=== PATIENT | female | born 1990 | race African-American/Black ===

== ENCOUNTER → 2017-05-30 | Outpatient (REF) | payer OTHER ==
[2017-06-01 11:04] LABS: HEPATITIS B SURFACE ANTIBODY POSITIVE (POSITIVE)
== END ==
LOC: M LAB REF 18:21
PROVIDERS: ATTEND Nurse Practitioner Family
DX: Z00.00 Encounter for general adult medical examination without abnormal findings (principal)

== ENCOUNTER → 2017-11-01 | Outpatient (REF) | LOC: M LAB 10:16 | PROVIDERS: ATTEND Nurse Practitioner Adult Health | DX: Z02.1 Encounter for pre-employment examination (principal) ==

== ENCOUNTER → 2018-05-04 | Outpatient (CLI) | payer OTHER | LOC: M RAD 10:40 | DX: N97.9 Female infertility, unspecified (principal) | CPT/HCPCS: 76830 ==

== ENCOUNTER 2018-07-24 03:39 | Emergency (ER) | payer OTHER ==
[2018-07-24] MEDS ORDERED: MORPHINE 4 MG/ML 1ML VIAL/SYRINGE (J2270) IV (04:15)
[2018-07-24 04:17] LABS: BASO % 0.4 % (0.0-1.0); EOS % 0.5 % (0.0-3.0); HEMATOCRIT 39.9 % (36.0-47.0); HEMOGLOBIN 13.1 g/dl (12.0-15.5); IMMATURE GRANULOCYTE % 0.4 % (0-3.0); LYMPH # 2.1 10^3/uL (1.5-4.5); LYMPH % 25.1 % (24.0-44.0); MEAN CORPUSCULAR HEMOGLOBIN 27.8 pg (27.0-33.0); MEAN CORPUSCULAR HGB CONC 32.8 g/dl (32.0-36.5); MEAN CORPUSCULAR VOLUME 84.5 fl (80.0-96.0); MONO # 1.1 10^3/uL (0.0-0.8); NEUTROPHILS # 5.1 10^3/uL (1.8-7.7); NEUTROPHILS % 60.6 % (36.0-66.0); PLATELET COUNT, AUTOMATED 163 10^3/uL (150-450); RED BLOOD COUNT 4.72 10^6/uL (4.00-5.40); RED CELL DISTRIBUTION WIDTH 13.3 % (11.5-14.5); WHITE BLOOD COUNT 8.3 10^3/uL (4.0-10.0)
[2018-07-24] MEDS ORDERED: ISOVUE-370 76% 100ML VIAL (Q9967) As Ordered (04:18)
[2018-07-24] MEDS ORDERED: GASTROGRAFIN SOLUTION 30ML (Q9963) As Ordered (04:19)
[2018-07-24] MEDS: NS 1,000 ML IV (04:22)
[2018-07-24] MEDS: KETOROLAC 30 MG/ML VIAL (J1885) IV (04:23)
[2018-07-24] MEDS: ONDANSETRON 4MG/2ML VIAL (J2405) IV (04:23)
[2018-07-24] MEDS: GASTROGRAFIN SOLUTION 30ML PO ×2 (04:31→04:32)
[2018-07-24 04:35] LABS: CONTROL LINE HCG INT CTR LINE PRESENT; HCG, SERUM QUALITATIVE POSITIVE (NEGATIVE)
[2018-07-24 04:42] LABS: ALBUMIN 2.8 GM/DL (3.2-5.2); ALBUMIN/GLOBULIN RATIO 0.72 (1.00-1.93); ALKALINE PHOSPHATASE 45 U/L (45-117); ALT/SGPT 13 U/L (12-78); ANION GAP 9 MEQ/L (8-16); AST/SGOT 12 U/L (7-37); BILIRUBIN,DIRECT 0.1 MG/DL (0.0-0.2); BILIRUBIN,TOTAL 0.4 MG/DL (0.2-1.0); BLOOD UREA NITROGEN 5 MG/DL (7-18); CALCIUM LEVEL 8.7 MG/DL (8.5-10.1); CARBON DIOXIDE LEVEL 24 MEQ/L (21-32); CHLORIDE LEVEL 106 MEQ/L (98-107); CREATININE FOR GFR 0.89 MG/DL (0.55-1.30); GLOMERULAR FILTRATION RATE > 60.0 (>60); GLUCOSE, FASTING 93 MG/DL (70-100); LIPASE 143 U/L (73-393); POTASSIUM SERUM 3.8 MEQ/L (3.5-5.1); SODIUM LEVEL 139 MEQ/L (136-145); TOTAL PROTEIN 6.7 GM/DL (6.4-8.2)
[2018-07-24 05:10] LABS: HCG, SERUM QUANTITATIVE 12 MIU/ML
== END 2018-07-24 06:46 | disposition home or self-care (01) ==
LOC: M ED 03:39
DX: E28.1 Androgen excess (principal)
CPT/HCPCS: J2405

== ENCOUNTER → 2018-09-26 | Outpatient (REF) | payer OTHER | LOC: M LAB REF 15:40 | DX: N76.0 Acute vaginitis (principal) ==

== ENCOUNTER → 2018-10-03 | Outpatient (REF) | payer OTHER ==
[2018-10-03 18:33] LABS: HCG, SERUM QUANTITATIVE 2593 MIU/ML
== END ==
LOC: M LAB REF 17:02
DX: N91.2 Amenorrhea, unspecified (principal)
CPT/HCPCS: 84702

== ENCOUNTER → 2018-10-27 | Outpatient (CLI) | payer OTHER ==
[2018-10-27 14:12] LABS: BASO % 0.3 % (0.0-1.0); EOS % 0.5 % (0.0-3.0); HEMATOCRIT 36.8 % (36.0-47.0); IMMATURE GRANULOCYTE % 0.2 % (0-3.0); LYMPH # 1.8 10^3/uL (1.5-4.5); LYMPH % 29.1 % (24.0-44.0); MEAN CORPUSCULAR HEMOGLOBIN 27.9 pg (27.0-33.0); MEAN CORPUSCULAR HGB CONC 32.6 g/dl (32.0-36.5); MEAN CORPUSCULAR VOLUME 85.6 fl (80.0-96.0); MONO # 0.9 10^3/uL (0.0-0.8); MONO % 14.9 % (0.0-5.0); NEUTROPHILS # 3.5 10^3/uL (1.8-7.7); PLATELET COUNT, AUTOMATED 185 10^3/uL (150-450); RED CELL DISTRIBUTION WIDTH 13.6 % (11.5-14.5); WHITE BLOOD COUNT 6.3 10^3/uL (4.0-10.0)
[2018-10-27 15:12] LABS: CHLAMYDIA DNA AMPLIFICATION NEGATIVE (NEGATIVE); GC DNA AMPLIFICATION NEGATIVE (NEGATIVE)
[2018-10-27 15:27] LABS: HBsAg Prenatal NEGATIVE (NEGATIVE); HIV 1&2 SCREEN CENTAUR NEGATIVE (NEGATIVE); RUBELLA IgG QUALITATIVE IMMUNE (IMMUNE)
[2018-10-27 15:27] LABS: HEPATITIS C VIRUS ABY INDEX 0.1 INDEX (<0.8)
== END ==
LOC: M SMT 11:58
DX: Z36.89 Encounter for other specified antenatal screening (principal)
CPT/HCPCS: 86762

== ENCOUNTER → 2019-01-04 | Outpatient (CLI) | payer OTHER ==
[~2019-01-04] MED LIST: PERC5TAB12 PO
--- NOTE | 2019-01-05 09:23 | REP ---
Clinical: Anatomical evaluation. Comparison: 07/24/2018 . Findings: Examination demonstrates a single live intrauterine in breech presentation. motion is identified by technologist. Placenta is noted anterior and grade grade 1 without evidence for placenta previa or abruption. Amniotic fluid volume is normal. Cervix measures 4.9 cm in length and appears closed. Multiple fibroids are identified including 5.1 cm anterior fibroid and 7.3 cm inferior fibroid. No evidence for nuchal cord. Gestational age by LMP 18 weeks 3 days with STEPHANIE 06[birth year]/1990 . Gestational age by current measurements 18 weeks 0 days with STEPHANIE 06/07/2019 . FHR equals 150 beats per minute. BPD 4.1 cm 18 weeks 1 day HC 15.1 cm 18 weeks 1 day AC 12.6 cm 18 weeks 2 days FL 2.6 cm 18 weeks 0 days HL 2.6 cm 18 weeks 3 days HC/AC ratio 1.19 Estimated weight 225 grams ( 36 percentile). Anatomical assessment demonstrates normal structures including cranium, choroid plexus, cavum, cerebellum/posterior fossa, lungs, four-chamber heart, diaphragm, stomach, cord insertion/three-vessel cord, kidneys/bladder, spine, and extremities. Impression: 1. Single live intrauterine in breech presentation demonstrating appropriate interval growth. 2. Multiple large fibroids. 3. Limited evaluation of the facial features and cardiac ventricular outflow tracts may warrant reevaluation and follow-up. Electronically Signed by Jose Harper MD 01/05/2019 09:15 A
== END ==
LOC: M SMT 10:46
PROVIDERS: ATTEND Obstetrics & Gynecology
DX: Z36.89 Encounter for other specified antenatal screening (principal); Z3A.18 18 weeks gestation of pregnancy

== ENCOUNTER 2019-01-15 08:31 | Outpatient (CLI) | payer OTHER ==
[~2019-01-15] VITALS: Ht 180.3 cm; Wt 100.0 kg
[2019-01-15 09:00] VITALS: BP 131/79
[2019-01-15] MEDS ORDERED: ACETAMINOPHEN 500 MG TAB PO PRN (10:45)
[2019-01-15 10:48] VITALS: BP 116/60
[2019-01-15] MEDS ORDERED: ACETAMINOPHEN 500 MG TAB As Ordered ONE (10:56)
--- NOTE | 2019-01-15 12:00 | IPNPDOC ---
Text Note Date of Service The patient was seen on 01/15/19. NOTE Subjective: Patient is a 29-year-old female who is a at 20 weeks gestation with an STEPHANIE of 06/04/19 based off of her LMP and consistent with her 1st trimester ultrasound. She initiated care in her 1st trimester. Her has been uncomplicated. She presents with complaints of left sided lower quadrant pain that started at 0600. She reports her pain is constant now. She rates it a 9/10. She reports she has nausea with the pain and has vomited 1 time this morning due to pain. She denies dysuria. She denies taking anything for her pain. She denies contractions, leaking of fluid or vaginal bleeding. 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 She denies smoking. She denies any history of emotional, physical, sexual abuse. She denies a history of alcohol or drug abuse. Objective: Vs: See below. Labs and ultrasound: see below. FHR 150's. A+O x3; Respirations: regular with no use of accessory muscles; Abdomen: gravid and soft with palpation. Tenderness noted with palpation in left lower quadrant. No tenderness in right quadrant. No CVA tenderness. Fundus at umbilicus. Assessment: IUP at 20 weeks gestation; left lower quadrant pain; fibroid uterus/degenerative fibroid Plan: Patient given Tylenol for pain management. Reviewed ultrasound with Dr. Archer. There were at least 4 fibroids noted with one being 9.2 cm. It was reviewed that there was no ovarian torsion, ovarian cysts, or issues with the placenta occurring. Reviewed that pain is from fibroids. Reviewed degenerative fibroids and fibroids during including what to expect. Reviewed pain management and comfort measures to help with discomfort of fibroids during . Patient instructed that if Tylenol, rest, and moist heat isn't working she can take Motrin 800 mg if needed but not past 25 weeks gestation. Patient has an appointment this Tuesday01/17/19. Reviewed access to care and danger signs to report. Patient instructed that if her pain isn't managed or decreased she needs to call the office. Patient to be discharged to home with her . VS,Bjbone, I+O VS, Fishbone, I+O Vital Signs Date Time Temp Pulse Resp B/P (MAP) Pulse Ox O2 Delivery O2 Flow Rate FiO2 01/15/19 10:48 99.6 97 18 116/60 (78) LIMITED OBSTETRIC SONOGRAPHY: HISTORY: Left-sided pelvic pain. FINDINGS: Scanning demonstrates a viable single intrauterine gestation in a variable lie. heart rate is recorded at 152 beats per minute. An anterofundal placenta is seen without evidence of previa. Amniotic fluid is subjectively normal. There are multiple fundal fibroids measuring 5.2 x 4.9 x 4.0 cm, 9.2 x 6.3 x 6.8 cm, and 2.5 x 1.2 x 2.5 cm. In the lower uterine segment, there is a left lateral fibroid 2.6 x 2.3 x 2.3 cm. The right ovary could not be visualized. The left ovary is unremarkable. Closed cervical length viewed transabdominally is 3.4 cm. IMPRESSION: Multiple uterine fibroids. No complication is identified. Normal maternal left ovary is seen with normal Doppler flow. Item Value Date Time Urine Color YELLOW 01/15/19 1207 Urine Appearance CLOUDY H 01/15/19 1207 Urine pH 7.0 UNITS 01/15/19 1207 Urine Specific [place] 1.019 01/15/19 1207 Urine Protein 1+ mg/dL H 01/15/19 1207 Urine Glucose (UA) NEGATIVE mg/dL 01/15/19 1207 Urine Ketones 2+ mg/dL H 01/15/19 1207 Urine Blood NEGATIVE 01/15/19 1207 Urine Nitrite NEGATIVE 01/15/19 1207 Urine Bilirubin NEGATIVE 01/15/19 1207 Urine Urobilinogen 0.2 mg/dL 01/15/19 1207 Urine Leukocyte Esterase 2+ H 01/15/19 1207 Urine WBC (Auto) 2 /HPF 01/15/19 1207 Urine RBC (Auto) 2 /HPF 01/15/19 1207 Urine Hyaline Casts (Auto) 0 /LPF 01/15/19 1207 Urine Bacteria (Auto) 1+ H 01/15/19 1207 Urine Squamous Epithelial Cells 17 /HPF 01/15/19 1207 Urine Mucus (Auto) SMALL 01/15/19 1207 ELIZABETH RATLIFF CNM Jan 15, 2019 12:00
--- NOTE | 2019-01-15 12:12 | REP ---
LIMITED OBSTETRIC SONOGRAPHY: HISTORY: Left-sided pelvic pain. FINDINGS: Scanning demonstrates a viable single intrauterine gestation in a variable lie. heart rate is recorded at 152 beats per minute. An anterofundal placenta is seen without evidence of previa. Amniotic fluid is subjectively normal. There are multiple fundal fibroids measuring 5.2 x 4.9 x 4.0 cm, 9.2 x 6.3 x 6.8 cm, and 2.5 x 1.2 x 2.5 cm. In the lower uterine segment, there is a left lateral fibroid 2.6 x 2.3 x 2.3 cm. The right ovary could not be visualized. The left ovary is unremarkable. Closed cervical length viewed transabdominally is 3.4 cm. IMPRESSION: Multiple uterine fibroids. No complication is identified. Normal maternal left ovary is seen with normal Doppler flow. Electronically Signed by Matt Hutton MD 01/15/2019 12:52 P
[2019-01-15 12:22] LABS: APPEARANCE, URINE CLOUDY (CLEAR); BACTERIA, URINE AUTO 1+ (NEGATIVE); BILIRUBIN, URINE AUTO NEGATIVE (NEGATIVE); BLOOD, URINE BLOOD NEGATIVE (NEGATIVE); COLOR, URINE YELLOW (YELLOW); GLUCOSE, URINE (UA) AUTO NEGATIVE (NEGATIVE); KETONE, URINE AUTO 2+ mg/dL (NEGATIVE); LEUKOCYTE ESTERASE, URINE AUTO 2+ (NEGATIVE); MUCUS, URINE SMALL (NEGATIVE); NITRITE, URINE AUTO NEGATIVE (NEGATIVE); PROTEIN, URINE AUTO 1+ mg/dL (NEGATIVE); RBC, URINE AUTO 2 /HPF (0-3); SPECIFIC GRAVITY URINE AUTO 1.019 (1.002-1.035); SQUAMOUS EPITHELIAL CELL UR AU 17 /HPF (0-6); UROBILINOGEN, URINE AUTO 0.2 mg/dL (0.0-2.0); WBC, URINE AUTO 2 /HPF (0-3)
== END 2019-01-15 12:39 | disposition home or self-care (01) ==
LOC: M LDO 08:31
PROVIDERS: ATTEND Advanced Practice Midwife
DX: O99.89 Other specified diseases and conditions complicating pregnancy, childbirth and the puerperium (principal); Z3A.20 20 weeks gestation of pregnancy; D25.9 Leiomyoma of uterus, unspecified
CPT/HCPCS: 76815; 81001; 87086; G0378; G0463

== ENCOUNTER → 2019-01-17 | Outpatient (REF) | payer OTHER | LOC: M LAB REF 13:07 | PROVIDERS: ATTEND Advanced Practice Midwife | DX: O34.12 Maternal care for benign tumor of corpus uteri, second trimester (principal); Z3A.00 Weeks of gestation of pregnancy not specified ==

== ENCOUNTER → 2019-01-30 | Outpatient (CLI) | payer OTHER ==
--- NOTE | 2019-01-31 04:49 | REP ---
Clinical: Anatomical evaluation. Comparison: 01/15/2019 . Findings: Examination demonstrates a single live intrauterine in cephalic presentation. motion is identified by technologist. Placenta is noted anterior/fundal and grade grade 1 without evidence for placenta previa or abruption. Amniotic fluid volume is normal. Cervix measures 3.3 cm in length and appears closed. Multiple fibroids are identified measuring 7.4 cm, 6.7 cm, 2.3 cm, and 2.3 cm maximal diameter. No evidence for nuchal cord. Gestational age by LMP 22 weeks 1 day with STEPHANIE 06/04/2019 . Gestational age by current measurements 21 weeks 2 days with STEPHANIE 06/10/2019 . FHR equals 156 beats per minute. Estimated weight 417 grams ( 23rd percentile). Anatomical assessment demonstrates normal structures including cranium, choroid plexus, cavum, cerebellum/posterior fossa, facial features, lungs, ventricular outflow tracts, diaphragm, stomach, cord insertion/three-vessel cord, kidneys/bladder, spine, and extremities. Impression: 1. Single live intrauterine in cephalic presentation demonstrating appropriate interval growth. 2. Multiple intrauterine fundal fibroids measuring up to 7.4 cm maximal diameter. 3. In conjunction with prior examination anatomical assessment is complete and normal. Electronically Signed by Jose Harper MD 01/31/2019 04:41 A
== END ==
LOC: M RAD 10:36
PROVIDERS: ATTEND Advanced Practice Midwife
DX: O34.12 Maternal care for benign tumor of corpus uteri, second trimester (principal); Z3A.21 21 weeks gestation of pregnancy; D25.9 Leiomyoma of uterus, unspecified

== ENCOUNTER → 2019-03-13 | Outpatient (CLI) | payer OTHER ==
[2019-03-13 14:03] LABS: BASO % 0.3 % (0.0-1.0); EOS % 0.5 % (0.0-3.0); HEMATOCRIT 33.5 % (36.0-47.0); HEMOGLOBIN 10.9 g/dl (12.0-15.5); LYMPH # 1.6 10^3/uL (1.5-4.5); LYMPH % 24.3 % (24.0-44.0); MEAN CORPUSCULAR HGB CONC 32.5 g/dl (32.0-36.5); MEAN CORPUSCULAR VOLUME 89.1 fl (80.0-96.0); MONO # 0.7 10^3/uL (0.0-0.8); MONO % 11.6 % (0.0-5.0); PLATELET COUNT, AUTOMATED 151 10^3/uL (150-450); RED BLOOD COUNT 3.76 10^6/uL (4.00-5.40); WHITE BLOOD COUNT 6.4 10^3/uL (4.0-10.0)
== END ==
LOC: M SMT 08:29
PROVIDERS: ATTEND Advanced Practice Midwife
DX: Z34.82 Encounter for supervision of other normal pregnancy, second trimester (principal); Z3A.00 Weeks of gestation of pregnancy not specified

== ENCOUNTER → 2019-03-15 | Outpatient (CLI) | payer OTHER | LOC: M LAB 07:03 | PROVIDERS: ATTEND Advanced Practice Midwife | DX: Z34.82 Encounter for supervision of other normal pregnancy, second trimester (principal); Z3A.00 Weeks of gestation of pregnancy not specified ==

== ENCOUNTER → 2019-04-06 | Outpatient (CLI) | payer OTHER ==
[~2019-04-06] MED LIST changes: +METO25TA4 PO
--- NOTE | 2019-04-06 10:34 | REP ---
Clinical: Growth evaluation Comparison: 01/30/2019 . Findings: Examination demonstrates a single live intrauterine in cephalic presentation. motion is identified by technologist. Placenta is noted anterior and grade grade zero without evidence for placenta previa or abruption. Amniotic fluid volume is normal. Cervix measures 4.3 cm in length and appears closed. No evidence for nuchal cord. Large anterior midline fibroid measures approximately 9.7 x 4.9 x 9.1 cm Gestational age by LMP 31 weeks 4 days with STEPHANIE 06/04/2019 . Gestational age by current measurements 31 weeks 4 days with STEPHANIE 06/04/2019 . FHR equals 141 beats per minute. BPD 7.9 cm 831 weeks 4 days HC 29.0 cm 31 weeks 6 days AC 26.5 cm 30 weeks 4 days FL 6.2 cm 32 weeks 0 days HL 5.5 cm 32 weeks 0 days HC/AC ratio 1.10 Estimated weight 1723 grams ( 35th percentile). Amniotic fluid index: 11.2 cm (8.7 - 24.0) Impression: 1. Single live intrauterine in cephalic presentation demonstrating appropriate interval growth. No gross abnormalities are identified. 2. Maternal uterine fibroids. Electronically Signed by Jose Harper MD 04/06/2019 10:25 A
== END ==
LOC: M RAD 09:31
PROVIDERS: ATTEND Advanced Practice Midwife
DX: O34.13 Maternal care for benign tumor of corpus uteri, third trimester (principal); Z3A.31 31 weeks gestation of pregnancy

== ENCOUNTER 2019-04-15 13:55 | Inpatient (IN) | payer OTHER ==
[~2019-04-15] VITALS: Ht 180.3 cm; Wt 99.4 kg
[~2019-04-15 13:55] MED LIST changes: -METO25TA4 PO
[2019-04-15] MEDS ORDERED: NS 1,000 ML IV ONE ×2 (14:15→16:15)
[2019-04-15 14:37] LABS: BASO % 0.3 % (0.0-1.0); EOS % 0.3 % (0.0-3.0); HEMATOCRIT 37.5 % (36.0-47.0); HEMOGLOBIN 12.2 g/dl (12.0-15.5); LYMPH # 1.8 10^3/uL (1.5-4.5); LYMPH % 23.1 % (24.0-44.0); MEAN CORPUSCULAR HEMOGLOBIN 28.7 pg (27.0-33.0); MEAN CORPUSCULAR HGB CONC 32.5 g/dl (32.0-36.5); MEAN CORPUSCULAR VOLUME 88.2 fl (80.0-96.0); MONO # 1.1 10^3/uL (0.0-0.8); MONO % 13.8 % (0.0-5.0); NEUTROPHILS # 4.9 10^3/uL (1.8-7.7); PLATELET COUNT, AUTOMATED 177 10^3/uL (150-450); RED BLOOD COUNT 4.25 10^6/uL (4.00-5.40); WHITE BLOOD COUNT 7.9 10^3/uL (4.0-10.0)
[2019-04-15 14:46] LABS: INR 0.99; PROTHROMBIN TIME 13.2 SECONDS (12.1-14.4)
[2019-04-15 14:47] LABS: PARTIAL THROMBOPLASTIN TIME 28.5 SECONDS (25.4-37.6)
--- NOTE | 2019-04-15 14:56 | REP ---
Clinical: Chest pain . Comparison: 05/19/2013 . Findings: The mediastinum and cardiac silhouette are stable and within normal limits for portable technique. The lung pérez are clear without acute consolidation, effusion, or pneumothorax. Skeletal structures are intact. Impression: No acute cardiopulmonary process appreciated. Electronically Signed by Jose Harper MD 04/15/2019 02:47 P
[2019-04-15 15:10] LABS: ALBUMIN 2.9 GM/DL (3.2-5.2); ALT/SGPT 44 U/L (12-78); BILIRUBIN,DIRECT 0.2 MG/DL (0.0-0.2); BILIRUBIN,TOTAL 0.5 MG/DL (0.2-1.0); BLOOD UREA NITROGEN 5 MG/DL (7-18); CALCIUM LEVEL 9.8 MG/DL (8.5-10.1); CARBON DIOXIDE LEVEL 26 MEQ/L (21-32); CHLORIDE LEVEL 103 MEQ/L (98-107); CPK CREATINE PHOSPHOKINASE 124 U/L (26-192); CREATININE FOR GFR 0.82 MG/DL (0.55-1.30); FREE T4 1.22 NG/DL (0.76-1.46); GLOMERULAR FILTRATION RATE > 60.0 (>60); GLUCOSE, FASTING 74 MG/DL (70-100); LIPASE 168 U/L (73-393); MAGNESIUM LEVEL 1.9 MG/DL (1.8-2.4); MB/CK RELATIVE INDEX 1.53 (< OR =4); POTASSIUM SERUM 3.7 MEQ/L (3.5-5.1); SODIUM LEVEL 139 MEQ/L (136-145); THYROID STIMULATING HORMONE 0.408 uIU/ML (0.358-3.740); TOTAL PROTEIN 6.8 GM/DL (6.4-8.2); TROPONIN I 0.36 NG/ML (< 0.10)
--- NOTE | 2019-04-15 16:24 | HPEPDOC ---
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 She presents for palpitations and left sided chest pain. She was in her usual state of good health last night, went to bed but had issues with heartburn. She states she has been having heartburn throughout her . She took 3-4 TUMS over a few hours, which usually works, however on this occasion provided no relief. At around 4:30AM she woke up to have a shower. At around 7AM she developed left sided chest pain, constant, non-radiating with no modifying factors. This lasted for about 30 minutes, then resolved spontaneously. After this she states she felt like her 'heart was in her mouth'. She noted on her iPhone that she ta chycardic with her heart rate up to 204. She attempted some vagal maneuvers with minimal improvement, with her rate coming down to around 187. She also noted dizziness. She checked her blood pressure and noted a systolic blood pressure in the 60s. She states her systolic is typically in the low 100s, and her heart rate typically in the 70s. She then came to the Emergency Department for further evaluation. 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 REVIEW OF SYSTEMS: Negative except as per HPI. HOME MEDICATIONS: Please see below. PHYSICAL EXAMINATION: VITAL SIGNS: See below GENERAL APPEARANCE: NAD, lying comfortably in bed HEENT: NC/AT, EOMI CARDIOVASCULAR: +S1S2, tachycardia, regular LUNGS: CTA B/L ABDOMEN: soft, NT, +BS, gravid EXTREMITIES: no edema NEUROLOGICAL: no gross focal deficits PSYCHIATRIC: AAOx3 LABORATORY DATA: See below. MICROBIOLOGY: Please see below. ASSESSMENT: 29 yo female 33 weeks , , with no past medical history admitted to medical service on behalf of obstetrics for palpitations, chest pain and dizziness. #palpitations/troponinemia - SVT? - cardiology c/s pending - admit to PCU - telemetry monitoring - echocardiogram/ECG in am - serial troponins # - follow as per obstetrics #DVT prophylaxis - as per obstetrics Vital Signs Vital Signs Date Time Temp Pulse Resp B/P (MAP) Pulse Ox O2 Delivery O2 Flow Rate FiO2 04/15/19 15:40 99 100 04/15/19 15:30 18 124/80 (95) Room Air 04/15/19 13:55 96.9 Laboratory Data Labs 24H Laboratory Tests 2 04/15/19 14:09: Immature Granulocyte % (Auto) 0.5, White Blood Count 7.9, Red Blood Count 4.25, Hemoglobin 12.2, Hematocrit 37.5, Mean Corpuscular Volume 88.2, Mean Corpuscular Hemoglobin 28.7, Mean Corpuscular Hemoglobin Concent 32.5, Red Cell Distribution Width 13.3, Platelet Count 177, Neutrophils (%) (Auto) 62.0, Lymphocytes (%) (Auto) 23.1L, Monocytes (%) (Auto) 13.8H, Eosinophils (%) (Auto) 0.3, Basophils (%) (Auto) 0.3, Neutrophils # (Auto) 4.9, Lymphocytes # (Auto) 1.8, Monocytes # (Auto) 1.1H, Eosinophils # (Auto) 0.0, Basophils # (Auto) 0.0, Nucleated Red Blood Cells % (auto) 0.0, Prothrombin Time 13.2, Prothromb Time International Ratio 0.99, Activated Partial Thromboplast Time 28.5, Anion Gap 10, Glomerular Filtration Rate > 60.0, Calcium Level 9.8, Magnesium Level 1.9, Aspartate Amino Transf (AST/SGOT) 32, Alanine Aminotransferase (ALT/SGPT) 44, Alkaline Rika sphatase 107, Total Bilirubin 0.5, Direct Bilirubin 0.2, Total Creatine Kinase 124, Creatine Kinase MB 2.0, Creatine Kinase MB Relative Index 1.53, Troponin I 0.36H, Total Protein 6.8, Albumin 2.9L, Albumin/Globulin Ratio 0.74L, Lipase 168, Thyroid Stimulating Hormone (TSH) 0.408, Free Thyroxine 1.22 CBC/BMP Laboratory Tests 04/15/19 14:09 Red Blood Count 4.25, Mean Corpuscular Volume 88.2, Mean Corpuscular Hemoglobin 28.7, Mean Corpuscular Hemoglobin Concent 32.5, Red Cell Distribution Width 13.3, Neutrophils (%) (Auto) 62.0, Lymphocytes (%) (Auto) 23.1 L, Monocytes (%) (Auto) 13.8 H, Eosinophils (%) (Auto) 0.3, Basophils (%) (Auto) 0.3, Neutrophils # (Auto) 4.9, Lymphocytes # (Auto) 1.8, Monocytes # (Auto) 1.1 H, Eosinophils # (Auto) 0.0, Basophils # (Auto) 0.0 Home Medications No Active Prescriptions or Reported Meds Allergies Coded Allergies: No Known Allergies (Unverified , 07/24/18) A-FIB/CHADSVASC A-FIB History Current/History of A-Fib/PAF?: No Current PO Anticoag Therapy: No JOSE ELKINS MD Apr 15, 2019 16:24
[2019-04-15] MEDS ORDERED: ASPIRIN 325 MG TAB PO ONE (18:00)
[2019-04-15 18:29] VITALS: BP 130/84
--- NOTE | 2019-04-15 18:46 | ECGEPIP ---
[facility] Test Date: 2019-04-15 Pat Name: RALPH HICKS Department: Room: [place] [address] Gender: Female Ad Operations Intern: NEL : 1990 Requested By: Dolores Decker Order Number: [id number] Reading MD: Dolores Decker Measurements Intervals [place] Rate: 106 P: 59 TN: 148 QRS: 9 QRSD: 78 T: 32 QT: 315 QTc: 418 Interpretive Statements SINUS TACHYCARDIA MINIMAL VOLTAGE CRITERIA FOR LVH, CONSIDER NORMAL VARIANT ABNORMAL RHYTHM ECG NO CHANGE COMPARED TO 15:29 SAME DAY Electronically Signed on 04-15-2019 18:46:01 EDT by Dolores Decker
--- NOTE | 2019-04-15 18:49 | CR ---
DATE OF CONSULTATION: 04/15/2019 REFERRING PHYSICIAN: Dr. Rigoberto Minor and Dr. Sumanth Wakefield INDICATION: Chest pain, elevated troponin, tachycardia. HISTORY OF PRESENT ILLNESS: Mrs. Parks is a 29-year-old -[place] female who has no significant past medical history. She is currently in her 33rd week of her first . She came to the hospital because she has had chest discomfort and palpitations. She tells me that she has had fairly severe heartburn throughout the whole but typically after she would take Tums the heartburn resolves. But yesterday starting in the evening hours the heartburn was more severe than usual and even though she took several Tums overnight it did not help. Eventually in the morning hours around 7 a.m. or so it was further aggravated by development of chest pain. She describes a pressure that was a little bit left from her sternum without obvious radiation and was relentless for approximately 30 minutes. It actually crossed her mind whether she could be having heart attack but then she felt that she was too young to have a heart attack and consequently did not look for any immediate medical attention. The discomfort resolved after approximately 30 minutes without any specific intervention but then approximately 8 a.m. she developed sudden onset of palpitations that she felt in her throat and were associated with mild dizziness but never felt near syncopal. She did not think that it had any effect on her chest discomfort or heartburn. She has an [employer] iWatch and her heart rate reported by the device was 204 beats per minute. She tried to reduce her heart rate by using different vagal maneuvers without effect. Eventually after the tachycardia persisted for about 4 hours she decided to come to emergency room. The heart rate was not always consistently 204. She reports some fluctuation from about 182-210 or so. Shortly before she made to it emergency room though she already noticed some slowing and the first documented heart rate in emergency room was 140 beats per minute. Her first ECG was at 1412 hours and revealed sinus tachycardia with ventricular rate 141 beats per minute. There were negative P-waves in AVL so I cannot rule out that it actually represents ectopic atrial tachycardia but there was no ST-segment shift and QRS morphology was normal. Her chest x-ray also did not reveal any cardiomegaly and she was not extremely hypo or hypertensive. She was initially treated with administration of normal saline and repeated ECG at 1529 hours reveals sinus tachycardia with heart rate 101 beats per minute and is otherwise normal. But to somewhat of a surprise her cardiac enzymes came elevated with troponin being 0.36 with normal CK and CK-MB. At the time of my evaluation she is comfortable. She tells me she still has some mild heartburn that she has had now for several months but there has not been any recurrence of chest discomfort. She denies any dyspnea. PAST MEDICAL HISTORY: Essentially negative. There is no history of hypertension or diabetes. She does have history of uterine fibroids SURGICAL HISTORY: Positive only for wisdom teeth extractions. OUTPATIENT MEDICATIONS: Only multivitamins and occasionally use of Tums. She never took any PPIs or H2 antagonists. ALLERGIES: No allergies. FAMILY HISTORY: Her mother has diabetes. She denies first-degree history of coronary artery disease or cardiac conditions. 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 She emigrated to the [place] about a decade ago. Spent her childhood in [place]. Her mother is from [facility] and her father is [place]. There is no history of smoking or drug use. REVIEW OF SYSTEMS: She does report having history of palpitations throughout her childhood but it was never a major issue and she never sought any medical attention for it. She is otherwise very athletic and reports excellent exertional tolerance. There is no history of syncope or presyncope. No recent febrile illness. The has otherwise been uncomplicated. The rest as per HPI or otherwise negative. PHYSICAL EXAMINATION: Mrs. Parks is a young -[place] woman who is in the emergency room on a stretcher at no distress, appears comfortable and is able to provide good history. The last set of vital signs reveal blood pressure 117/76, heart rate was 110 when I was in the room, she was afebrile. Saturations 100% on room air. Her JVP is not elevated. I do not appreciate any carotid bruit. There is no goiter. Lungs are clear with good air movement. Heart exam reveals regular rhythm. No gallop or rub. No murmur. Abdomen is soft, not obese and consistent with . Extremities are free of edema. Peripheral pulses are good quality. LABORATORIES: CBC is normal. Basic metabolic panel is normal. Her TSH was 0.41. She had troponin 0.36. CK was 224, CK-MB 2.0. Liver function tests are negative. INR is 1.0. Chest x-ray is normal. ECGs as per HPI. ASSESSMENT/PLAN: Ms. Parks is a 29-year-old -[place] female who is currently in her 33rd week of first who presents with chest discomfort and palpitations. Based on the history she provided it is likely that she had some form of tachycardia that lasted approximately 4 hours from 8 a.m. until approximately noon and heart rate was around 200 beats per minute. There was sudden onset but gradual termination. By the time she reached emergency room she was still somewhat tachycardic but it was already only sinus tachycardia. Obviously at this point the nature of her arrhythmia remains speculative. I do not appreciate any evidence for any structural heart disease. As far as the troponin elevation is concerned, it could be purely just a consequence of very fast heart rate for several hours but especially considering the fact that she is , I believe that it is important that we monitor her in the hospital. I intend to obtain serial ECGs and serial cardiac enzymes and an echocardiogram. Provided there will be no relapse of extreme tachycardia and her cardiac enzymes do not elevate overly high and she has normal wall motion on echocardiogram, she will be able to go home tomorrow. I am going to give her an aspirin but I am not convinced that we should give her beta blockers as yet unless there is any recurrence of symptoms. CARLEY
--- NOTE | 2019-04-15 19:43 | ECGEPIP ---
[facility] - ED Test Date: 2019-04-15 Pat Name: RALPH HICKS Department: Room: - Gender: Female Superintendent Division: lyudmila : 1990 Requested By: Sumanth Tim Order Number: [id number] Reading MD: Sumanth Tim Measurements Intervals [place] Rate: 141 P: 72 LA: 114 QRS: 56 QRSD: 58 T: 52 QT: 270 QTc: 414 Interpretive Statements SINUS TACHYCARDIA WITH SHORT LA INTERVAL ABNORMAL RHYTHM ECG NO OLD ECG FOR COMPARISON Electronically Signed on 04-15-2019 19:43:44 EDT by Sumanth Tim
--- NOTE | 2019-04-15 19:46 | ECGEPIP ---
[facility] - ED Test Date: 2019-04-15 Pat Name: RALPH HICKS Department: Room: - Gender: Female Hand Surgeon: GELY : 1990 Requested By: Sumanth Tim Order Number: [id number] Reading MD: Sumanth Tim Measurements Intervals [place] Rate: 101 P: 61 GA: 143 QRS: 30 QRSD: 74 T: 46 QT: 326 QTc: 423 Interpretive Statements SINUS TACHYCARDIA WITH SHORT GA INTERVAL NONSPECIFIC T-WAVE ABNORMALITY ABNORMAL RHYTHM ECG CW 04/15/19 RATE DECREASED Electronically Signed on 04-15-2019 19:46:04 EDT by Sumanth Tim
[2019-04-15 20:00] VITALS: BP 128/71
[2019-04-15 20:20] LABS: MB/CK RELATIVE INDEX 2.06 (< OR =4); TROPONIN I 0.36 NG/ML (< 0.10)
[2019-04-16] VITALS: BP 101/68
--- NOTE | 2019-04-16 00:07 | NUR ---
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 Presented to ED today with complaints of heart palpitations/chest discomfort that started earlier this morning and persisted into the afternoon. Workup in ED revealed sinus tachycardia on EKG, elevated cardiac enzymes, and a normal CXR (no cardiomegaly or pulmonary congestion). The decision was made to admit to the medicine service with cardiology and FARM MECHANIC APPRENTICE as consultants. See H&P and Cardiology consultation notes. From an obstetric standpoint, her has been notable for the presence of a large uterine leiomyoma, which is being followed closely. growth has been normal. The uterine leiomyoma has shown evidence of degeneration during this . She has also had significant heartburn during this , for which she treats with TUMS. This morning, while experiencing her chest symptoms, she also was experiencing intermittently painful uterine contractions. The timing of her contractions never became significantly frequent or severely painful. She denies any vaginal bleeding or loss of fluid/abnormal vaginal discharge. She reports frequent movement. Denies LANE, visual changes, RUQ pain. Normotensive, tachycardic, normal O2 sat on RA during ER evaluation, afebrile Abd: soft,nt,nd, uterine fundus nontender and fundal height c/w EGA. SSE: cervix visually closed, no bleeding or abnormal d/c or foul odor. SVE: cervix closed, thick, posterior, no bloody show fFN negative TVUS: CL >3cm with no funneling or dynamic changes. EFM: Cat I, reactive, mod natalie, no decels. [place]: irreg ctx pattern. A/P: 29yo G1 at 33+ weeks EGA. +cardiac symptoms and clinical findings that warrant admission and close monitoring by IM / Cards. No clear e/o peripartum c ardiomyopathy at this point, but planned echocardiogram yet to be completed. No e/o labor, /prelabor rupture of membranes, or intra-amniotic infection. Reassuring status. -Will continue to follow closely -Plan is for NST q shift and repeat pelvic / cervical exam if she becomes symptomatic with contractions, VB, or LOF. -Appreciate the ongoing care of our IM and Cardiology staff, please do not hesitate to call FARM MECHANIC APPRENTICE for any assistance. Vivienne Rivera DO
[2019-04-16] MEDS ORDERED: CALCIUM CARBONATE 500 MG CHEW U/D PO PRN (00:15)
[2019-04-16 04:00] VITALS: BP 113/69
[2019-04-16 05:02] LABS: HEMATOCRIT 30.2 % (36.0-47.0); MEAN CORPUSCULAR HEMOGLOBIN 29.4 pg (27.0-33.0); MEAN CORPUSCULAR HGB CONC 33.4 g/dl (32.0-36.5); PLATELET COUNT, AUTOMATED 143 10^3/uL (150-450); RED BLOOD COUNT 3.43 10^6/uL (4.00-5.40); WHITE BLOOD COUNT 6.7 10^3/uL (4.0-10.0)
[2019-04-16 05:04] LABS: HEMOGLOBIN 10.1 g/dl (12.0-15.5)
[2019-04-16 05:27] LABS: ALBUMIN 2.2 GM/DL (3.2-5.2); ALT/SGPT 35 U/L (12-78); BILIRUBIN,TOTAL 0.5 MG/DL (0.2-1.0); BLOOD UREA NITROGEN 3 MG/DL (7-18); CALCIUM LEVEL 8.7 MG/DL (8.5-10.1); CARBON DIOXIDE LEVEL 25 MEQ/L (21-32); CHLORIDE LEVEL 107 MEQ/L (98-107); CPK CREATINE PHOSPHOKINASE 90 U/L (26-192); CREATININE FOR GFR 0.72 MG/DL (0.55-1.30); GLOMERULAR FILTRATION RATE > 60.0 (>60); GLUCOSE, FASTING 106 MG/DL (70-100); MB/CK RELATIVE INDEX 1.89 (< OR =4); POTASSIUM SERUM 3.7 MEQ/L (3.5-5.1); SODIUM LEVEL 140 MEQ/L (136-145); TOTAL PROTEIN 5.8 GM/DL (6.4-8.2); TROPONIN I 0.13 NG/ML (< 0.10)
--- NOTE | 2019-04-16 06:46 | ECHO ---
DATE OF PROCEDURE: 04/15/2019 REFERRING PHYSICIAN: Dr. Rigoberto Minor and myself. INDICATION: Troponin elevation, supraventricular tachycardia (SVT), chest pain. HEIGHT: 178 cm. WEIGHT: 96 kg. DIMENSIONS: IVS: 1.2 LV: 4.3 LVPW: 1.1 LA: 3.1 Aorta: 2.8 IVC: 1.4 RV: 2.3 Mitral E wave velocity: 73 A wave: 59 E prime septal: 12.7 E prime lateral: 16 FINDINGS: The patient is in sinus tachycardia. Study is of good technical quality. Left ventricle is normal size and systolic function with estimated ejection fraction (EF) 60-65%. I do not appreciate any segmental wall motion abnormalities. Right ventricle is also normal size and systolic function. Both atria appear normal. Aortic, mitral and tricuspid valves appear normal. Pulmonic valve was not seen. No pericardial effusion is noted. Inferior vena cava is normal size. Aortic root and aortic arch appear normal. Abdominal aorta was not well seen. Doppler interrogation reveals no aortic stenosis or insufficiency. There is trace mitral insufficiency. Tricuspid valve is functionally competent. Mitral inflow pattern and tissue Doppler imaging of mitral annulus reveal normal diastolic function. CONCLUSIONS: 1. Study is of acceptable technical quality. 2. Normal LV size and systolic and diastolic function. 3. No significant valvular disease. 4. No pericardial effusion. 5. Normal central venous pressure. 6. Unable to estimate pulmonary artery pressure, but no signs to suggest pulmonary hypertension. COMMENT: Subacute bacterial endocarditis (SBE) prophylaxis is not recommended. Essentially normal echocardiogram.
--- NOTE | 2019-04-16 07:48 | IPN ---
DATE: 04/16/2019 Ms. Parks had a pretty good night. She did not have any recurrence of palpitations or chest discomfort, but she continues to feel her chronic heartburn. Telemetry monitoring overnight revealed sinus rhythm without significant arrhythmias. This morning, she has no complaints. Blood pressure 113/69 and has been same range overnight. Heart rate mostly in 90s and low 100s. Afebrile. Saturation 99%. Her weight is 99.4 kg. She is alert and oriented and appropriate. Her jugular venous pulse (JVP) is not high. Lungs are clear with good air movement. Heart exam reveals a regular rhythm. I do not appreciate gallop or rub. She does not have any pain on deep inspiration. Abdomen is consistent with . There is no edema. Neurologically she is intact. LABORATORY DATA: Basic metabolic panel is normal. Normal liver functions. Her troponin is trending down, 0.13 currently. Albumin is 2.2. CBC reveals hemoglobin 10, hematocrit 30, platelet count 143,000. ASSESSMENT/PLAN: Ms. Parks is a 29-year-old female who is currently in the 33rd week of her first . She presented with sensation of tachycardia and chest discomfort. Per her own documentation, she had heart rate around 200 beats per minute for approximately 4 hours, but by the time she came to emergency room it was already down to about 140 and rapidly decreased to around 100. We were able to document only sinus tachycardia and no other arrhythmias. She had mild troponin elevation, but a normal EKG and normal echocardiogram. I believe she can be safely discharged home. I told her to contact my office promptly if there is any relapse. I would advocate that she gets prescribed metoprolol 25 mg only, lets say 5 or 10 pills, so she can use them on as needed basis.
[2019-04-16 08:00] VITALS: BP 113/79
[2019-04-16] MEDS ORDERED: METO25TA4 PO (08:23)
--- NOTE | 2019-04-16 08:27 | DS.PDOC ---
Discharge Summary General Date of Admission Apr 15, 2019 at 17:06 Date of Discharge 04/16/19 Specialist/Consultants Involve: Dolores Decker MD Discharge Summary PROCEDURES PERFORMED DURING STAY: [None]. DISCHARGE DIAGNOSES: 1. palpitations 2. COMPLICATIONS/CHIEF COMPLAINT: Svt (Supraventricular Tachycardia). 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 She presents for palpitations and left sided chest pain. She was in her usual state of good health last night, went to bed but had issues with heartburn. She states she has been having heartburn throughout her . She took 3-4 TUMS over a few hours, which usually works, however on this occasion provided no relief. At around 4:30AM she woke up to have a shower. At around 7AM she developed left sided chest pain, constant, non-radiating with no modifying factors. This lasted for about 30 minutes, then resolved spontaneously. After this she states she felt like her 'heart was in her mouth'. She noted on her iPhone that she tachycardic with her heart rate up to 204. She attempted some vagal maneuvers with minimal improvement, with her rate coming down to around 187. She also noted dizziness. She checked her blood pressure and noted a systolic blood pressure in the 60s. She states her systolic is typically in the low 100s, and her heart rate typically in the 70s. She then came to the Emergency Department for further evaluation. HOSPITAL COURSE: Admitted for telemetry monitoring, seen in consultation by cardiology and obstetrics. Echocardiogram obtained which was unrevealing. Tachycardia was significantly improved during hospital stay, sinus tach, no other rhythms noted. Troponinemia improved. D/w cardiology, deemed safe for discharge home with lopressor as needed, and outpatient follow up. DISCHARGE MEDICATIONS: Please see below. ALLERGIES: Please see below. PHYSICAL EXAMINATION ON DISCHARGE: VITAL SIGNS: Please see below. GENERAL: NAD HEENT: NC/AT Lungs: CTA B/L Heart: +S1S2, RRR Abd: soft, NT, +BS, gravid Ext: no edema LABORATORY DATA: Please see below. ACTIVITY: [As tolerated]. DIET: regular DISCHARGE PLAN: Discharge home DISCHARGE INSTRUCTIONS: 1. Follow up with cardiology if symptoms recur. 2. Follow up obstetrics as scheduled. 3. Follow up PCP in 3-5 days. DISCHARGE CONDITION: [Stable]. TIME SPENT ON DISCHARGE: 32 minutes. Vital Signs/I&Os Vital Signs Date Time Temp Pulse Resp B/P (MAP) Pulse Ox O2 Delivery O2 Flow Rate FiO2 04/16/19 04:00 97.9 98 16 113/69 (84) 99 04/15/19 17:37 Room Air I&O- Last 24 Hours up to 6 AM 04/16/19 06:00 Intake Total 3300 ml Output Total 2750 ml Balance 550 ml Laboratory Data Labs 24H Laboratory Tests 2 04/15/19 14:09: Immature Granulocyte % (Auto) 0.5, White Blood Count 7.9, Red Blood Count 4.25, Hemoglobin 12.2, Hematocrit 37.5, Mean Corpuscular Volume 88.2, Mean Corpuscular Hemoglobin 28.7, Mean Corpuscular Hemoglobin Concent 32.5, Red Cell Distribution Width 13.3, Platelet Count 177, Neutrophils (%) (Auto) 62.0, Lymphocytes (%) (Auto) 23.1L, Monocytes (%) (Auto) 13.8H, Eosinophils (%) (Auto) 0.3, Basophils (%) (Auto) 0.3, Neutrophils # (Auto) 4.9, Lymphocytes # (Auto) 1.8, Monocytes # (Auto) 1.1H, Eosinophils # (Auto) 0.0, Basophils # (Auto) 0.0, Nucleated Red Blood Cells % (auto) 0.0, Prothrombin Time 13.2, Prothromb Time International Ratio 0.99, Activated Partial Thromboplast Time 28.5, Anion Gap 10, Glomerular Filtration Rate > 60.0, Calcium Level 9.8, Magnesium Level 1.9, Aspartate Amino Transf (AST/SGOT) 32, Alanine Aminotransferase (ALT/SGPT) 44, Alkaline Phosphatase 107, Total Bilirubin 0.5, Direct Bilirubin 0.2, Total Creatine Kinase 124, Creatine Kinase MB 2.0, Creatine Kinase MB Relative Index 1.53, Troponin I 0.36H, Total Protein 6.8, Albumin 2.9L, Albumin/Globulin Ratio 0.74L, Lipase 168, Thyroid Stimulating Hormone (TSH) 0.408, Free Thyroxine 1.22 04/15/19 16:53: Fibronectin NEGATIVE 04/15/19 19:49: Total Creatine Kinase 102, Creatine Kinase MB 2.0, Creatine Kinase MB Relative Index 2.06, Troponin I 0.36H 04/16/19 03:23: Bedside Glucose (Misc Panel) 80 04/16/19 04:36: Nucleated Red Blood Cells % (auto) 0.0, Anion Gap 8, Glomerular Filtration Rate > 60.0, Blood Urea Nitrogen 3L, Creatinine 0.72, Sodium Level 140, Potassium Level 3.7, Chloride Level 107, Carbon Dioxide Level 25, Calcium Level 8.7, Aspartate Amino Transf (AST/SGOT) 25, Alanine Aminotransferase (ALT/SGPT) 35, Total Creatine Kinase 90, Alkaline Phosphatase 81, Total Bilirubin 0.5, Total Protein 5.8L, Albumin 2.2#L, Creatine Kinase MB 2.0, Creatine Kinase MB Relative Index 1.89, Troponin I 0.13#H, Albumin/Globulin Ratio 0.61L CBC/BMP Laboratory Tests 04/15/19 14:09 Red Blood Count 4.25, Mean Corpuscular Volume 88.2, Mean Corpuscular Hemoglobin 28.7, Mean Corpuscular Hemoglobin Concent 32.5, Red Cell Distribution Width 13.3, Neutrophils (%) (Auto) 62.0, Lymphocytes (%) (Auto) 23.1 L, Monocytes (%) (Auto) 13.8 H, Eosinophils (%) (Auto) 0.3, Basophils (%) (Auto) 0.3, Neutrophils # (Auto) 4.9, Lymphocytes # (Auto) 1.8, Monocytes # (Auto) 1.1 H, Eosinophils # (Auto) 0.0, Basophils # (Auto) 0.0 04/16/19 04:36 Red Blood Count 3.43 L, Mean Corpuscular Volume 88.0, Mean Corpuscular Hemoglobin 29.4, Mean Corpuscular Hemoglobin Concent 33.4, Red Cell Distribution Width 13.3, Calcium Level 8.7, Aspartate Amino Transf (AST/SGOT) 25, Alanine Aminotransferase (ALT/SGPT) 35, Total Creatine Kinase 90, Alkaline Phosphatase 81, Total Bilirubin 0.5, Total Protein 5.8 L, Albumin 2.2 #L FSBS Laboratory Tests Test 04/16/19 03:23 Range/Units Bedside Glucose (Misc Panel) 80 70-105 MG/DL Discharge Medications Scheduled PRN Metoprolol Tartrate (Metoprolol Tartrate) 25 Mg Tablet, 1 TAB PO Q6HP PRN for palpitations/tachycardia take 1 tablet every 6 hours as needed for palpitations, tachycardia. Allergies Coded Allergies: No Known Allergies (Unverified , 07/24/18) JOSE ELKINS MD Apr 16, 2019 08:27
--- NOTE | 2019-04-16 18:37 | ECGEPIP ---
[facility] Test Date: 2019-04-16 Pat Name: RALPH HICKS Department: Room: [place] [address] Gender: Female Oscillograph Technician: CLIFF : 1990 Requested By: JOSE Santos Order Number: [id number] Reading MD: Marvin Tsang Measurements Intervals [place] Rate: 109 P: 61 [place]: 137 QRS: 48 QRSD: 61 T: 40 QT: 321 QTc: 434 Interpretive Statements Sinus tachycardia Otherwise within normal limits for age Electronically Signed on 04-16-2019 18:36:48 EDT by Marvin Tsang
== END 2019-04-16 10:00 | disposition home or self-care (01) | DRG 833 ==
LOC: M ED 13:55 → M ED INP 17:06 → M ICU 18:25
PROVIDERS: ADMIT Internal Medicine; ATTEND Internal Medicine
DX: O26.893 Other specified pregnancy related conditions, third trimester (principal); Z3A.33 33 weeks gestation of pregnancy; R12 Heartburn

== ENCOUNTER 2019-04-19 09:20 | Observation (INO) | payer OTHER ==
[2019-04-19] VITALS (7 sets, daily range): BP systolic 103–118; BP diastolic 68–75
[~2019-04-19] VITALS: Ht 180.3 cm; Wt 101.5 kg
[~2019-04-19 09:20] MED LIST changes: +METO25TA4 PO
[2019-04-19] MEDS: METOPROLOL 5 MG/5 ML VIAL IV SCH ×7 (09:35→10:00)
[2019-04-19] MEDS ORDERED: NS 500 ML IV ONE ×2 (10:00→10:30)
[2019-04-19 10:02] LABS: BASO % 0.3 % (0.0-1.0); EOS % 0.4 % (0.0-3.0); HEMOGLOBIN 11.5 g/dl (12.0-15.5); LYMPH # 1.8 10^3/uL (1.5-4.5); MEAN CORPUSCULAR HEMOGLOBIN 28.5 pg (27.0-33.0); MEAN CORPUSCULAR HGB CONC 32.9 g/dl (32.0-36.5); MEAN CORPUSCULAR VOLUME 86.8 fl (80.0-96.0); MONO # 0.9 10^3/uL (0.0-0.8); NEUTROPHILS # 4.5 10^3/uL (1.8-7.7); PLATELET COUNT, AUTOMATED 178 10^3/uL (150-450); RED BLOOD COUNT 4.03 10^6/uL (4.00-5.40); WHITE BLOOD COUNT 7.2 10^3/uL (4.0-10.0)
[2019-04-19 10:13] LABS: INR 0.93; PROTHROMBIN TIME 12.6 SECONDS (12.1-14.4)
[2019-04-19 10:14] LABS: PARTIAL THROMBOPLASTIN TIME 29.4 SECONDS (25.4-37.6)
[2019-04-19 10:30] LABS: ALBUMIN 2.6 GM/DL (3.2-5.2); ALT/SGPT 45 U/L (12-78); BILIRUBIN,DIRECT < 0.1 MG/DL (0.0-0.2); BILIRUBIN,TOTAL 0.3 MG/DL (0.2-1.0); CPK CREATINE PHOSPHOKINASE 96 U/L (26-192); FREE T4 1.22 NG/DL (0.76-1.46); LIPASE 207 U/L (73-393); MB/CK RELATIVE INDEX 1.15 (< OR =4); NT-PRO BNP 16 PG/ML (<125); THYROID STIMULATING HORMONE 0.521 uIU/ML (0.358-3.740); TOTAL PROTEIN 6.6 GM/DL (6.4-8.2); TROPONIN I < 0.02 NG/ML (< 0.10)
[2019-04-19] MEDS ORDERED: METOPROLOL SUCC *XL* 25MG TAB (TopROL *XL*) As Ordered ONE (10:56)
[2019-04-19] MEDS ORDERED: METOPROLOL SUCC *XL* 25MG TAB (TopROL *XL*) PO ONE (11:00)
[2019-04-19] MEDS ORDERED: METOPROLOL TART 25 MG TABLET PO ONE ×2 (11:00→12:00)
[2019-04-19] MEDS ORDERED: NS 1,000 ML IV SCH (11:15)
[2019-04-19] MEDS ORDERED: NS 250 ML IV ONE (12:45)
[2019-04-19] MEDS ORDERED: METO1TAB87 PO (13:22)
[2019-04-19] MEDS ORDERED: dexameTHASONE 4 MG/ML 1ML VIAL (J1100) As Ordered ONE (13:30)
[2019-04-19] MEDS ORDERED: ROCURONIUM BROMIDE 50 MG/5 ML VIAL As Ordered ONE (13:30)
[2019-04-19] MEDS ORDERED: fentaNYL 250 MCG/5 ML INJECTION (J3010) As Ordered ONE (13:30)
[2019-04-19] MEDS ORDERED: LIDOCAINE 2% INJ 100 MG/5 ML SDV (FOR ANES.) As Ordered ONE (13:30)
[2019-04-19] MEDS ORDERED: propofoL 200 MG/20 ML VIAL As Ordered ONE (13:30)
[2019-04-19] MEDS ORDERED: SEVOFLURANE INHAL SOLN 250 ML BTL As Ordered ONE (13:37)
[2019-04-19] MEDS ORDERED: MIDAZOLAM INJ 2 MG/2 ML VIAL (J2250) As Ordered ONE (14:06)
[2019-04-19] MEDS ORDERED: ADENOSINE 6MG/2ML INJECTION (J0153) ONE (14:23)
[2019-04-19] MEDS ORDERED: ACETAMINOPHEN TAB 650MG DOSE (2X325MG) PO PRN (14:30)
[2019-04-19] MEDS ORDERED: LR 1,000 ML IV SCH (15:15)
--- NOTE | 2019-04-19 17:13 | ECGEPIP ---
[facility] Test Date: 2019-04-19 Pat Name: RALPH HICKS Department: Room: - Gender: Female Packager Or Packer And Weigher: CLIFF : 1990 Requested By: Dolores Decker Order Number: [id number] Reading MD: Marvin Tsang Measurements Intervals [place] Rate: 101 P: 55 [place]: 139 QRS: 22 QRSD: 76 T: 32 QT: 319 QTc: 415 Interpretive Statements Sinus tachycardia Prominent R waves in V2 through V4 likely related to different lead placement from earlier same day. Conversion of Paroxysmal supraventricular tachycardia from prior tracing Electronically Signed on 04-19-2019 17:13:30 EDT by Marvin Tsang
--- NOTE | 2019-04-19 18:04 | RO ---
DATE OF PROCEDURE: 04/19/2019 PREPROCEDURE DIAGNOSIS: Sustained supraventricular tachycardia. POSTPROCEDURE DIAGNOSIS: Islam of sinus rhythm PROCEDURE: Chemical cardioversion. SURGEON: Dolores Decker MD CYLINDRICAL MIXER: None ANESTHESIOLOGY: Dr. Sher Shultz BRIEF HISTORY: Mrs. Parks is a 29-year-old female who came to emergency room with sustained supraventricular tachycardia. She was very uncomfortable. Because she is in her 34th week of there was a concern about distress. She received doses of intravenous (IV) and oral metoprolol, which did not have any effect on her heart rate. Her blood pressure at times was low in high 80s and low 90s. We decided to proceed with administration of adenosine, but there was a concern on the part of emergency room and SANITATION SUPERINTENDENT physician about potential compromise. Consequently the decision was made to bring the patient to operating room and prepare her for potential emergency section in case they is additional hemodynamic instability. I talked to the patient and explained that if adenosine should not be successful in terminating the arrhythmia, we will proceed with direct current (DC) cardioversion, and she signed appropriate consent for the procedure. DESCRIPTION OF PROCEDURE: The patient was taken to the operating room. Appropriate monitors were applied, appropriate time-out was taken. Defibrillator patches were applied in the usual position. Her abdomen was draped and prepped for potential emergency section (). With Dr. Rivera, anesthesiology team and numerous technicians and nurses in place, I administered 6 mg of IV adenosine through the peripheral catheter in left upper extremity that was followed by 20 ml IV push bolus of normal saline. This led to prompt sikhism of sinus rhythm. The patient had the usual episode of discomfort in her chest, but there were otherwise no additional complications and the procedure was hemodynamically well tolerated. She was then taken to recovery room and then to monitored bed. CONCLUSION: Successful cardioversion of supraventricular tachycardia using IV adenosine. CARLEY
[2019-04-19 20:39] LABS: MAGNESIUM LEVEL 1.9 MG/DL (1.8-2.4)
[2019-04-19] MEDS: METOPROLOL TART 25 MG TABLET PO SCH (21:00)
[2019-04-19] MEDS: FLECAINIDE 50MG TABLET PO SCH (21:07)
[2019-04-19] MEDS ORDERED: CALCIUM CARBONATE 500 MG CHEW U/D PO PRN (23:30)
[2019-04-20 00:28] VITALS: BP 114/70
[2019-04-20 04:45] VITALS: BP 123/74
[2019-04-20 06:21] LABS: HEMATOCRIT 30.8 % (36.0-47.0); MEAN CORPUSCULAR HEMOGLOBIN 27.9 pg (27.0-33.0); MEAN CORPUSCULAR HGB CONC 32.5 g/dl (32.0-36.5); MEAN CORPUSCULAR VOLUME 85.8 fl (80.0-96.0); PLATELET COUNT, AUTOMATED 148 10^3/uL (150-450); RED BLOOD COUNT 3.59 10^6/uL (4.00-5.40); WHITE BLOOD COUNT 6.3 10^3/uL (4.0-10.0)
[2019-04-20 07:04] LABS: BLOOD UREA NITROGEN 5 MG/DL (7-18); CALCIUM LEVEL 8.2 MG/DL (8.5-10.1); CARBON DIOXIDE LEVEL 23 MEQ/L (21-32); CHLORIDE LEVEL 108 MEQ/L (98-107); CREATININE FOR GFR 0.64 MG/DL (0.55-1.30); FREE T4 1.28 NG/DL (0.76-1.46); GLOMERULAR FILTRATION RATE > 60.0 (>60); GLUCOSE, FASTING 87 MG/DL (70-100); POTASSIUM SERUM 3.8 MEQ/L (3.5-5.1); SODIUM LEVEL 140 MEQ/L (136-145); THYROID STIMULATING HORMONE 0.684 uIU/ML (0.358-3.740)
[2019-04-20 08:04] VITALS: BP 116/78
[2019-04-20 08:16] VITALS: BP 116/78
[2019-04-20] MEDS: METOPROLOL TART 25 MG TABLET PO SCH (08:16)
[2019-04-20] MEDS: FLECAINIDE 50MG TABLET PO SCH (08:16)
--- NOTE | 2019-04-20 08:20 | DSES ---
DATE OF ADMISSION: 04/19/2019 DATE OF DISCHARGE: 04/20/2019 DIAGNOSIS: Supraventricular tachycardia. DESCRIPTION OF HOSPITAL STAY: Mrs. Parks is a 29-year-od female who is in her 34th week of . She came to initially my office with complaints of palpitations starting at approximately 6:30 on 04/19/2019. She took 25 mg of metoprolol which was not effective. Electrocardiogram revealed evidence of narrow complex tachycardia without visible P-waves. She was referred to emergency room where she received additional doses of metoprolol initially IV and then by mouth which did not have any affect on the arrhythmia. Her blood pressure has been soft throughout the emergency room stay and in spite of receiving IV fluids it was not improving. Consequently it was felt that the arrhythmia had to be terminated or else it could cause distress (even though there was no evidence of it by monitoring). Because of concern on the part of emergency room physician and box stapler we took the patient to the operating room and prepared her for tentatively emergency but she had responded favorably to administration of Adenosine without any signs of compromise. The single 6 mg IV dose led to anglican of sinus rhythm. She subsequently was given Flecainide 50 mg yesterday evening and tolerated the dose without any problems. She already had an ECG this morning on the day of discharge which looks normal without any QRS widening. She will be discharged home with tentative followup in my office later next week. I will keep her on a combination of low dose metoprolol and Flecainide because I am fearing earlier relapse. This was her second hospitalization for the same problem even though during the first hospital stay her arhythmia actually resolved before it was confirmed by us on form of ECG strip or ECG. Because the relapse occurred within 3 days I felt that the likelihood of additional episodes that are always very symptomatic was very high and I believe that antiarrhythmic therapy is fully necessary and justified. I explained possible side effect and I told the patient that she should contact our office should she have any problems in the interim. I will arrange for appointment in approximately 5-7 days after discharge. It is my recommendation that patient stays out of work for that time. DISCHARGE MEDICATIONS: Metoprolol 25 mg twice a day and Flecainide 50 mg twice a day. The medications will be sent to [facility]. CARLEY
[2019-04-20] MEDS ORDERED: tambocor PO (08:51)
[2019-04-20] MEDS ORDERED: LOPR1TAB6 PO (08:51)
[2019-04-20] MEDS ORDERED: TUMS500C PO (08:51)
[2019-04-20] MEDS ORDERED: ACET-908 PO (08:51)
[2019-04-20] MEDS ORDERED: ENOXAPARIN 40 MG/0.4 ML SYRINGE (J1650) SC SCH (09:00)
[2019-04-20 09:12] VITALS: BP 112/72
--- NOTE | 2019-04-20 20:17 | ECGEPIP ---
[facility] Test Date: 2019-04-20 Pat Name: RALPH HICKS Department: Room: [place] [address] Gender: Female Telephone Interceptor Operator: LEOBARDO : 1990 Requested By: Dolores Decker Order Number: [id number] Reading MD: Marvin Tsang Measurements Intervals [place] Rate: 91 P: 1 ID: [id number] QRS: 47 QRSD: 69 T: 22 QT: 349 QTc: 429 Interpretive Statements SINUS RHYTHM Normal Electronically Signed on 04-20-2019 20:17:03 EDT by Marvin Tsang
--- NOTE | 2019-04-20 21:27 | HPE ---
DATE OF ADMISSION: 04/19/2019 PRINCIPAL DIAGNOSIS: Supraventricular tachycardia. HISTORY OF PRESENT ILLNESS: Ms. Parks is a very pleasant 29-year-old female who was admitted in our facility 4 days ago after she had approximately 4 hours of strong palpitations that actually resolved by the time she reached our emergency room. But she had mildly elevated troponin and consequently she was monitored overnight. While she was hospitalized, there were no documented arrhythmias, and her ECG and echocardiogram were normal. She called my office early this morning. She woke up approximately 6:30 this morning with sensation of palpitations again. She took 25 mg of metoprolol by mouth, and when she came to my office she was found to be in supraventricular tachycardia without obvious P waves and ventriculare rate 160 beats per minute (BPM). Besides strong sensation of palpitations, she had no additional symptoms. Because at that point the arrhythmia was sustained for about 2-1/2 hours, I recommended that she go immediately to the emergency room for further evaluation. She continued to be in narrow complex tachycardia in the emergency room and did not respond to administration of intravenous (IV) and additional by mouth doses of metoprolol. At that point, I wanted to administer adenosine, but there was a concern on part of the emergency room physician and her thermoplastic technician about possible hemodynamic instability, as at that point her systolic blood pressure was dipping into high 80s and low 90s. Consequently, patient was brought to the operating room. She was draped and prepped for potential emergency section, but she received 6 mg of IV adenosine, and that uneventfully converted her rhythm into sinus tachycardia. She was then brought to progressive care unit (PCU), or physically intensive care unit (ICU) with PCU status for further monitoring. Patient has no prior history of supraventricular tachycardia (SVT). She reports fairly longstanding history of palpitations. They were more prominent when she was young, but this is the first time when she has had sustained palpitations during her . PAST MEDICAL HISTORY: Positive for uterine fibroids, otherwise negative. Specifically, there is no history of thyroid disease. There is no history of any cardiovascular problems. SURGICAL HISTORY: Positive for wisdom teeth extractions. 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 She is . This is her first . She does not smoke. There is no significant alcohol use. ALLERGIES: There are no medication allergies. OUTPATIENT MEDICATIONS: Positive only for vitamins and as-needed use of metoprolol, which she has not used until this morning. She has had heartburn throughout the , for which she has been using Tums. FAMILY HISTORY: No significant history of coronary artery disease or cardiac problems in first-degree relatives. REVIEW OF SYSTEMS: There is no history of syncope or near syncope. She had chest pain during her recent hospitalization, difficult to differentiate from her heartburn. The rest of review of systems is negative or as history of present illness (HPI). PHYSICAL EXAMINATION: Patient is a pleasant, young female in no distress. CURRENT VITAL SIGNS: Blood pressure 117/70, heart rate in low 100s and in 90s, sinus rhythm. She is afebrile. Saturation is 100% on room air. Her weight is documented as 101 kg. Her jugular venous pulse (JVP) is not elevated. No carotid bruit. No goiter. LUNGS: Clear. HEART: Reveals regular rhythm. I do not appreciate any gallop, rub, or murmur. ABDOMEN: Consistent with . Bowel sounds are positive. I do not appreciate any overt hepatosplenomegaly. There is no peripheral edema, and peripheral pulses are easily palpable. NEUROLOGIC: She is intact. LABORATORY DATA: CBC: Hemoglobin 11.5, hematocrit 35, platelet count 178,000. Basic metabolic panel is normal. She had cardiac enzymes drawn that are negative. Normal liver function tests. Her albumin is a little low at 2.6. Urinalysis is positive for 1+ protein and 2+ ketones. INR is 0.9. ECG on presentation revealed presence of narrow complex tachycardia without discernible P wave activity. Post conversation ECG reveals presence of sinus rhythm with otherwise unremarkable tracing. ASSESSMENT AND PLAN: Mrs. Parks is a very pleasant 29-year-old female who presents with sustained supraventricular tachycardia (SVT). It did not respond to administration of metoprolol, and eventually she was converted chemically with adenosine. Unfortunately, the fact that she did not respond to beta blockers and the fact that she had relapse of tachycardia just 3 days after discharge from this facility makes me think that she almost certainly will have additional relapses. Consequently, I will administer metoprolol and flecainide in very small doses on regular basis. Considering this scenario, I think it is appropriate to keep patient in the hospital at least for overnight monitoring. The RECRUITMENT DIRECTOR monitoring will be directed by Dr. Rivera. I did think it is very likely that with chronic metoprolol and flecainide use, there will not be any relapses of SVT, and she will be able to complete her . If she has episodes of SVT after delivery, then very likely will have to pursue with ablation. I explained the rationale for our decision making to the patient. Her questions were answered. edited: 04/24/2019 0717 tkf CARLEY
--- NOTE | 2019-04-21 08:01 | ECGEPIP ---
[facility] - ED Test Date: 2019-04-19 Pat Name: RALPH HICKS Department: Room: - Gender: Female Doubler Operator: DMITRIY : 1990 Requested By: Sumanth Tim Order Number: [id number] Reading MD: Ozzy Marino Measurements Intervals [place] Rate: 155 P: [place]: -1 QRS: 28 QRSD: 73 T: 30 QT: 254 QTc: 408 Interpretive Statements SUPRAVENTRICULAR TACHYCARDIA Traqcing done 04-15-19 showed short AL interval Electronically Signed on 04-21-2019 8:01:30 EDT by Ozzy Marino
== END 2019-04-20 09:35 | disposition home or self-care (01) ==
LOC: M ED 09:20 → M ICU 14:22 → M ED 15:04
PROVIDERS: ADMIT Internal Medicine Cardiovascular Disease; ATTEND Internal Medicine Cardiovascular Disease
DX: O99.413 Diseases of the circulatory system complicating pregnancy, third trimester (principal); I47.1 Supraventricular tachycardia; Z3A.34 34 weeks gestation of pregnancy
CPT/HCPCS: 36415; 80047; 80048; 80076; 82550; 82553; 83690; 83735; 83880; 84439; 84443; 84484; 85025; 85027; 85610; 85730; 92960; 93005; 93041; 94760; 96361; 96374; 96375; 96376; 99285; J0153; J1100; J2250; J3010

== ENCOUNTER → 2019-04-27 | Outpatient (CLI) | payer OTHER ==
[~2019-04-27] MED LIST changes: +ACET-908 PO; +LOPR1TAB6 PO; +METO1TAB87 PO; +TUMS500C PO; +tambocor PO
--- NOTE | 2019-04-27 09:49 | REP ---
Obstetric sonography: History: Gestational diabetes of . growth study. Findings: Scanning through the gravid uterus demonstrates a viable single intrauterine gestation in a cephalic lie. motion is observed and heart rate is recorded at 147 beats per minute. An anterior grade 1 placenta is seen without evidence of previa or abruption. Amniotic fluid is subjectively normal. Closed cervical length is 4.2 cm, viewed transabdominally. No extrauterine abnormality is observed. There has been appropriate interval growth. Umbilical cord is seen draping over the neck. A anterior midline uterine fibroid is again noted measuring 10.8 x 8.3 x 3.2 cm. This may be two fibroids adjacent to one another. The following anatomic structures are again identified and felt to be unremarkable: cranium, cavum, lungs, four-chamber heart with outflow tract views, diaphragm, left-sided stomach, abdominal wall cord insertion, three-vessel cord, kidneys and bladder. Biometry chart: BPD 8.4 cm 33 weeks 6 days Head circumference 31.2 cm 34 weeks 6 days Abdominal circumference 29.2 cm 33 weeks 1 day Femur length 6.8 cm 34 weeks 6 days Humeral length 6.0 cm 35 weeks 0 days HC/AC ratio normal 1.07, cephalic index normal 0.75 estimated weight 2310 grams, 5 pounds 1 ounce, 35th percentile for 34 weeks 4 days KIANA 13.1 cm S D ratio in the umbilical cord artery normal 2.62. Impression: Viable single intrauterine gestation at 34 weeks 3 days by today's composite sonographic criteria for expected gestational age estimate based on prior sonography is 34 weeks 1 day. STEPHANIE by prior sonography June 07, 2019. There is appropriate interval growth. Anterior uterine leiomyoma. Electronically Signed by Matt Hutton MD 04/27/2019 03:04 P
== END ==
LOC: M RAD 07:27
PROVIDERS: ATTEND Obstetrics & Gynecology
DX: O24.419 Gestational diabetes mellitus in pregnancy, unspecified control (principal); O34.10 Maternal care for benign tumor of corpus uteri, unspecified trimester; Z3A.34 34 weeks gestation of pregnancy

== ENCOUNTER → 2019-05-08 | Outpatient (REF) | payer OTHER | LOC: M LAB REF 17:15 | PROVIDERS: ATTEND Obstetrics & Gynecology | DX: Z34.83 Encounter for supervision of other normal pregnancy, third trimester (principal); Z3A.00 Weeks of gestation of pregnancy not specified ==

== ENCOUNTER 2019-05-28 12:22 | Inpatient (IN) | payer OTHER ==
[~2019-05-28] VITALS: Ht 180.3 cm; Wt 100.1 kg
[2019-05-28] VITALS (25 sets, daily range): BP systolic 113–141; BP diastolic 58–90
[2019-05-28] MEDS: FLECAINIDE 50MG TABLET PO SCH ×2 (09:00→22:06)
[2019-05-28] MEDS ORDERED: miSOPROStol 50 MCG 1/2 TAB (S0191) PO PRN ×2 (12:45→14:15)
[2019-05-28] MEDS ORDERED: FLEC50HA PO (13:08)
[2019-05-28] MEDS ORDERED: ZANT150T40 PO (13:10)
--- NOTE | 2019-05-28 13:13 | HPEPDOC ---
Obstetrical History & Physical General Date of Admission May 28, 2019 at 12:22 History of Present Illness 29 yo G1 at 39 0/7 wks presenting for IOL for SVT, GDMA1 She is feeling well. Has contractions, but not too painful at this time. Denies vaginal bleeding, LOF, +FM. Otherwise feeling well HCP: STEPHANIE 06/04/19 -SVT, diagnosed at 33 wks. Seen by cardiology, currently on metoprolol and flecainide. Pt reports taking both only qHS although she was prescribed BID -GDMA1, FS well controlled -Uterine fibroids, large 10 cm midline anterior with additional in R lower side PNL: O+, antibody neg, RI, RPR nr, Hep B neg, HCV neg, GC/CT neg, GBS + Past [employer]: denies abnormal pap smears PMH: SVT diagnosed in PSH: wisdom teeth Meds: Metoprolo, flecainide, zantac NKDA SH: denies e/t/d Information Provided By: Patient Dating Final EDC: Jun 04, 2019 Past Medical History Past Obstetrical History : Past Obstetrical History: Primgravida Past Medical History Surgical History: Denies/None Family History Significant Family History: No pertinent family hx Social History * Smoker: non-smoker Allergies Coded Allergies: No Known Allergies (Unverified , 07/24/18) Medications Scheduled Metoprolol Tartrate (Lopressor) 50 Mg Tablet, 25 MG PO BID Hold for heartrate less than 70, SBP less than 90 [tambocor] , 50 MG PO BID Scheduled PRN Acetaminophen (Acetaminophen) 325 Mg Tablet, 650 MG PO Q4HP PRN for PAIN OR FEVER Calcium Carbonate (Tums) 200 Mg Tab.chew, 1,000 MG PO Q4HP PRN for heartburn Physical Examination Physical Examination GENERAL: Alert and oriented times three. ABDOMEN: Gravid and non-tender to touch. FETUS: Is vertex (VTX) by sterile vaginal examination (SVE), fetus is vertex (VTX) by Vargas. HEART RATE: Regular rate and rhythm. LUNGS: Clear to auscultation (CTA). EXTREMITIES: No edema. No clonus. Laboratory Data 24H LABS Laboratory Tests 2 05/28/19 12:36: Serology Scanned Report Hepatitis B Testing Pertinent Laboratoy Data Blood Type: O+ RBC Antibody Screen: Negative HIV: Negative Hepatitis B: Negative Hepatitis C: Negative Rapid Plasma Reagin: Nonreactive Rubella: Immune Chlamydia/Gonorrhea: Negative Group B Streptococcus: Positive Other Ultrasounds 10/18/2018: ViabilitySIUP with CRL: 8.6mm, 6 weeks 5 days. EDC cw LMP. Positive yolk sac. Positive cardiac motion 01/04/2019: anatomySIUP. Placenta anterior, no previa or abruption. Cervix 4.9cm. Multiple fibroids seen. EFW 225g, 36%. Limited evaluation of facial features and VOTs. 01/15/2019: L Quadrant PainSIUP. Variable lie. FHR 152. Placenta anterior fundal, no previa. AFV normal. Multiple fundal fibroids measuring 5.2 x 4.9 x 4.0cm, 9.2 x 6.3 x 6.8cm, and 2.6 x 2.3 x 2.3cm. Right ovary not visualized. Left ovary unremarkable. Cx 3.4cm closed. No complication identified. 01/30/2019: f/uSIUP. Cephalic. Placenta anterior/fundal, grade 1, no previa or abruption. AFV normal. Cx 3.3cm closed. Multiple fibroids identified measuring 7.4cm, 6.7cm, 2.3cm, and 2.3cm maximum diameter. FHR 156. EFW 417g (23%). Assessment complete and normal. 04/06/2019: GrowthSIUP, EFW 1723grams, 35%. FHR 141. Placenta anterior grade 0, no previa or abruption. KIANA 11.2cm. Closed cervix 4.3cm. No gross abnormalities identified. Large anterior midline fibroid 9.7x4.9x.9.1cm. 04/27/2019: growthSIUP. Anterior placenta, no previa or abruption. Closed cervix 4.2cm. Anterior midline fibroid seen 10.8x8.3x3.2cm, may be 2 fibroids adjacent to one another. EFW 2310g, 35%. KIANA 13.1cm. SD ratio 2.62. Vaginal Examination Dilation: 1cm Effacement: 50% Station: -2 Cervical Consistency: Firm Cervical Position: Middle Assessment Heart Rate (FHR): 140 Variability: Moderate Accelerations: Positive Decelerations: None Tocometer Contractions: Yes Frequency: irregular Assessment/Plan Assessment 29 yo G1 at 39 0/7 wks here for IOL Plan -admit to LDR, normal labs -IOL: cervix unfavorable. Will start with miso -SVT: continue metoprolol and flecainide -GDMA1: random glucose now. Will check 2 hour PP while eating then q1-2 hours in active labor -GBS+, start PCN in active labor -FWB: reassuring RANGEL ROSE PGY-3 May 28, 2019 13:13
[2019-05-28 13:25] LABS: BASO % 0.3 % (0.0-1.0); EOS % 0.3 % (0.0-3.0); HEMATOCRIT 33.9 % (36.0-47.0); HEMOGLOBIN 11.2 g/dl (12.0-15.5); LYMPH # 1.4 10^3/uL (1.5-4.5); LYMPH % 23.2 % (24.0-44.0); MEAN CORPUSCULAR HEMOGLOBIN 28.2 pg (27.0-33.0); MEAN CORPUSCULAR VOLUME 85.4 fl (80.0-96.0); MONO # 0.9 10^3/uL (0.0-0.8); MONO % 14.9 % (0.0-5.0); NEUTROPHILS # 3.8 10^3/uL (1.8-7.7); PLATELET COUNT, AUTOMATED 196 10^3/uL (150-450); RED BLOOD COUNT 3.97 10^6/uL (4.00-5.40); WHITE BLOOD COUNT 6.2 10^3/uL (4.0-10.0)
[2019-05-28 13:51] LABS: GLUCOSE,RANDOM 90 MG/DL (LESS THAN 200)
[2019-05-28] MEDS: raNITIdine SYRUP 150 MG/10 ML UDC PO SCH ×2 (14:07→21:00)
--- NOTE | 2019-05-28 18:29 | IPNPDOC ---
Obstetrical Progress Note Date of Service May 28, 2019 Subjective Patient reports she feels some contractions. Objective Vital Signs Date Time Temp Pulse Resp B/P (MAP) Pulse Ox O2 Delivery O2 Flow Rate FiO2 05/28/19 17:15 98.7 99 16 116/58 (77) 99 Assessment Heart Rate (FHR): 140 Variability: Moderate Accelerations: Positive Decelerations: None Heart Rate Tracing: Category I Tocometer Contractions: Yes Sterile Vaginal Examination Dilation: 1cm Effacement (%): other (75%) Station: -2 Cervical Consistency: Soft Cervical Position: Anterior Assessment and Plan EGA at Admission: 39 Status: Reassuring Group B Streptococcus: Negative Anticipate: Vaginal Delivery Additional Comments Cook's leung bulb with 40/40 of NS inserted. Patient tolerated well. Will hold cytotec right now and consider IV Pitocin. ELIZABETH RATLIFF CNM May 28, 2019 18:29
[2019-05-28] MEDS ORDERED: OXYTOCIN 30 UNITS IN 0.9% NaCl 500ML IV BAG (J2590) As Ordered ONE (19:23)
[2019-05-28] MEDS ORDERED: OXYTOCIN DRIP 30 UNITS in APPROPRIATE DILUENT 1 EA IV SCH (19:30)
[2019-05-28] MEDS: LR 1,000 ML IV SCH (19:35)
[2019-05-28] MEDS ORDERED: LACTATED RINGER'S 1000 ML IV ONE (19:45)
[2019-05-28] MEDS ORDERED: FENTANYL 2MCG/ML ROPIVACAINE 0.2% IN 0.9% NACL 100ML IVBAG As Ordered ONE (20:08)
[2019-05-28] MEDS: FENTANYL/ROPIVACAINE/NACL BAG 100 ML EPIDURAL SCH (20:49)
[2019-05-28] MEDS ORDERED: METOPROLOL TART 25 MG TABLET PO SCH (21:00)
[2019-05-28] MEDS ORDERED: ONDANSETRON 4MG/2ML VIAL (J2405) IV PRN (21:30)
[2019-05-28] MEDS: ONDANSETRON 4MG/2ML VIAL (J2405) IV PRN (21:37)
[2019-05-28] MEDS ORDERED: LACTATED RINGER'S 1000 ML IV PRN (21:45)
[2019-05-28] MEDS ORDERED: REFRIGERATOR IV KEYS XX PRN (21:45)
[2019-05-28] MEDS ORDERED: EPIDURAL COMMENT XX SCH (21:45)
[2019-05-28] MEDS ORDERED: EPIDURAL/PCA KEYS XX PRN (21:45)
[2019-05-28] MEDS ORDERED: NALOXONE INJ 0.4 MG/1 ML VIAL (J2310) IV PRN (21:45)
[2019-05-28] MEDS ORDERED: ePHEDrine SULFATE 25 MG/5 ML(5MG/ML) SYRINGE IV PRN (21:45)
[2019-05-28] MEDS ORDERED: diphenhydrAMINE INJ 50MG/ML VIAL (J1200) IV PRN (21:45)
--- NOTE | 2019-05-28 23:32 | IPNPDOC ---
Obstetrical Progress Note Date of Service May 28, 2019 Subjective Patient comfortable with epidural. Does reports some dizziness. Desired to have her epidural rate decreased. Objective Vital Signs Date Time Temp Pulse Resp B/P (MAP) Pulse Ox O2 Delivery O2 Flow Rate FiO2 05/28/19 23:01 102 18 125/76 (92) 05/28/19 21:59 98.0 05/28/19 18:05 100 Assessment Heart Rate (FHR): 130 Variability: Moderate Accelerations: Positive Decelerations: None Heart Rate Tracing: Category I Tocometer Contractions: Yes Frequency: regular Sterile Vaginal Examination Dilation: 4 cm (4-5 cm) Effacement (%): other (75%) Station: -1 Cervical Consistency: Soft (scant bloody show.) Cervical Position: Anterior Postion/Presentation: Cephalic presentation Assessment and Plan Age: 29 EGA at Admission: 39 Status: Reassuring Anticipate: Vaginal Delivery Additional Comments IV Pitocin is at 6 mu/min. Renner bulb fell out at 2144. Anesthesia was up to see patient and decreased her epidural rate. All vitals and labs are normal. Encouraged rest for patient. Consider AROM. ELIZABETH RATLIFF CNM May 28, 2019 23:32
[2019-05-28] MEDS ORDERED: PENICILLIN G POTASSIUM IV 5 MU in D5W MINI-BAG PLUS 100 ML IV STA (23:38)
[2019-05-29] VITALS (43 sets, daily range): BP systolic 107–139; BP diastolic 55–85
[2019-05-29] MEDS: LR 1,000 ML IV SCH ×3 (00:31→10:23)
[2019-05-29] MEDS: PENICILLIN G POTASSIUM IV 2.5 MU in APPROPRIATE DILUENT 1 EA IV SCH ×2 (03:56→08:01)
--- NOTE | 2019-05-29 06:04 | IPNPDOC ---
Obstetrical Progress Note Date of Service May 29, 2019 Subjective Patient comfortable with her epidural. She denies having any dizziness. Objective Vital Signs Date Time Temp Pulse Resp B/P (MAP) Pulse Ox O2 Delivery O2 Flow Rate FiO2 05/29/19 03:13 82 18 119/80 (93) 05/29/19 01:15 98.2 05/28/19 18:05 100 Assessment Heart Rate (FHR): 130 Variability: Moderate Accelerations: Positive Decelerations: None Heart Rate Tracing: Category I Tocometer Contractions: Yes Frequency: regular Sterile Vaginal Examination Dilation: 5 cm (5-6 cm) Effacement (%): other (75%) Station: -1 Cervical Consistency: Soft Cervical Position: Anterior Postion/Presentation: Cephalic presentation Assessment and Plan EGA at Admission: 39 Weeks & Days 39.1 weeks today Status: Reassuring Group B Streptococcus: Positive Anticipate: Vaginal Delivery Additional Comments AROM to a moderate amount of clear fluid. ELIZABETH RATLIFF CNM May 29, 2019 06:04
[2019-05-29] MEDS: FENTANYL/ROPIVACAINE/NACL BAG 100 ML EPIDURAL SCH (07:16)
[2019-05-29] MEDS: FLECAINIDE 50MG TABLET PO SCH ×2 (08:01→21:46)
[2019-05-29] MEDS: raNITIdine SYRUP 150 MG/10 ML UDC PO SCH (08:01)
[2019-05-29] MEDS: ONDANSETRON 4MG/2ML VIAL (J2405) IV PRN (08:27)
[2019-05-29] MEDS ORDERED: ONDANSETRON 4MG/2ML VIAL (J2405) IV PRN (13:15)
[2019-05-29] MEDS ORDERED: DOCUSATE SODIUM 100 MG CAP PO PRN (13:15)
[2019-05-29] MEDS ORDERED: METHYLERGONOVINE MALEATE 0.2 MG TAB PO PRN (13:15)
[2019-05-29] MEDS ORDERED: IBUPROFEN 600 MG TAB PO PRN (13:15)
[2019-05-29] MEDS ORDERED: RHOGAM 300 MCG (1500 IU) INJ (J2790) IM SCH (13:15)
[2019-05-29] MEDS ORDERED: IBUPROFEN 800 MG TAB PO PRN (13:15)
[2019-05-29] MEDS ORDERED: OXYTOCIN DRIP 30 UNITS in APPROPRIATE DILUENT 1 EA IV ONE (13:15)
[2019-05-29] MEDS ORDERED: LIDOCAINE 1% MDV 20ML VIAL INFIL ONE (13:15)
[2019-05-29] MEDS ORDERED: DIBUCAINE 1% OINTMENT 30GM TOP PRN (13:15)
[2019-05-29] MEDS ORDERED: MEASLES,MUMPS,RUBELLA VACCINE INJ (MMR-II) (90707) SC SCH (13:15)
[2019-05-29] MEDS ORDERED: ACETAMINOPHEN TAB 650MG DOSE (2X325MG) PO PRN (13:15)
[2019-05-29] MEDS ORDERED: ACETAMINOPHEN 500 MG TAB PO PRN (13:15)
--- NOTE | 2019-05-29 14:45 | DN ---
DATE OF DELIVERY: 05/28/2019 PREDELIVERY DIAGNOSIS: 40 weeks, labor. POSTDELIVERY DIAGNOSIS: Delivered. PROCEDURE: Spontaneous vaginal delivery. WORKFORCE STAFFING ADVISOR: Rigoberto Archer MD FERMENTING CELLARS RECEIVER: DO Joelle ANESTHESIA: Epidural. ESTIMATED BLOOD LOSS: 300 mL. FINDINGS: 6 pound 15 ounce female , score 9 and 9. DELIVERY SUMMARY: After 30 minutes second stage, the patient had spontaneously delivery of a 6 pound 15 ounce female with score 9 and 9 under epidural anesthesia. There was no nuchal cord. The shoulders delivered with ease. The was handed to the mother and cried immediately. The cord was doubly clamped and cut. The placenta delivered spontaneously and appeared to be intact. The patient received intravenous (IV) pitocin immediately after delivery of the placenta. A second-degree perineal laceration was repaired with #2-0 chromic under local anesthesia in the usual fashion. Sponge and needle counts were correct.
[2019-05-29] MEDS: METOPROLOL TART 25 MG TABLET PO SCH (21:47)
[2019-05-30 06:00] VITALS: BP 106/59
[2019-05-30] MEDS ORDERED: LIDOCAINE 1% MDV 20ML VIAL As Ordered ONE (07:38)
[2019-05-30] MEDS ORDERED: PRENATAL VITAMINS CHEWABLE TABLET PO SCH (09:00)
[2019-05-30] MEDS: FLECAINIDE 50MG TABLET PO SCH (09:00)
[2019-05-30] MEDS: METOPROLOL TART 25 MG TABLET PO SCH (09:00)
[2019-05-30] MEDS ORDERED: QC A650T3 PO (13:50)
[2019-05-30] MEDS ORDERED: IBUP-1022 PO (13:50)
[2019-05-30] MEDS ORDERED: ACET-683 PO (13:50)
[2019-05-30] MEDS ORDERED: MULTTAB20 PO (13:50)
[2019-05-30] MEDS ORDERED: IBUP80TA PO (13:50)
[2019-05-30] MEDS ORDERED: COLA100C5 PO (13:54)
== END 2019-05-30 17:48 | disposition home or self-care (01) | DRG 805 ==
LOC: M LDI 12:22 → M OBS 05-29 15:44
PROVIDERS: ADMIT Advanced Practice Midwife; ATTEND Specialist
PROC: 10E0XZZ Delivery of Products of Conception, External Approach (ICD-10-PCS; principal; 2019-05-28)
PROC: 0KQM0ZZ Repair Perineum Muscle, Open Approach (ICD-10-PCS; 2019-05-28)
PROC: 3E097GC Introduction of Other Therapeutic Substance into Nose, Via Natural or Artificial Opening (ICD-10-PCS; 2019-05-28)
DX: O24.420 Gestational diabetes mellitus in childbirth, diet controlled (principal); Z37.0 Single live birth; O99.42 Diseases of the circulatory system complicating childbirth; I47.1 Supraventricular tachycardia; Z3A.39 39 weeks gestation of pregnancy; O99.824 Streptococcus B carrier state complicating childbirth; O70.1 Second degree perineal laceration during delivery

== ENCOUNTER → 2021-01-28 | Outpatient (REF) | payer OTHER, BC ==
[~2021-01-28] MED LIST changes: +ACET-683 PO; +COLA100C5 PO; +FLEC50HA PO; +IBUP-1022 PO; +IBUP80TA PO; +MULTTAB20 PO; +QC A650T3 PO; +ZANT150T40 PO
== END ==
LOC: M SFHCWAGY 13:43
PROVIDERS: ATTEND Specialist
DX: Z12.4 Encounter for screening for malignant neoplasm of cervix (principal); R87.610 Atypical squamous cells of undetermined significance on cytologic smear of cervix (ASC-US)
CPT/HCPCS: 87624; G0123

== ENCOUNTER → 2021-08-20 | Outpatient (REF) | payer OTHER, BC ==
[~2021-08-20] MED LIST changes: -ACET-908 PO; +ACET-910 PO
== END ==
LOC: M LAB REF 12:40
PROVIDERS: ATTEND Internal Medicine
DX: N39.0 Urinary tract infection, site not specified (principal)

== ENCOUNTER → 2022-06-18 | Outpatient (REF) | payer BC | LOC: M SFHCWAGY 10:39 | PROVIDERS: ATTEND Specialist | DX: Z12.4 Encounter for screening for malignant neoplasm of cervix (principal); R87.615 Unsatisfactory cytologic smear of cervix | CPT/HCPCS: 87624; G0123 ==

== ENCOUNTER → 2022-06-22 | Outpatient (REF) | payer BC | LOC: M LAB REF 08:26 | PROVIDERS: ATTEND Internal Medicine | DX: Z02.1 Encounter for pre-employment examination (principal) ==

== ENCOUNTER → 2022-07-02 | Outpatient (CLI) | payer BC | LOC: M WHC 09:17 | PROVIDERS: ATTEND Specialist | DX: D25.9 Leiomyoma of uterus, unspecified (principal); Z97.5 Presence of (intrauterine) contraceptive device ==

== ENCOUNTER → 2024-02-09 | Outpatient (CLI) | payer BC | LOC: M RAD 08:34 | PROVIDERS: ATTEND Specialist | DX: N83.202 Unspecified ovarian cyst, left side (principal); D25.9 Leiomyoma of uterus, unspecified ==

== ENCOUNTER 2024-08-01 05:53 | Emergency (ER) | payer BC ==
[2024-08-01 06:49] LABS: BASO % 0.5 % (0.0-1.0); EOS # 0.1 10^3/uL (0.0-0.5); EOS % 1.4 % (0.0-3.0); HEMATOCRIT 39.8 % (36.0-47.0); HEMOGLOBIN 12.8 g/dl (12.0-15.5); LYMPH % 22.6 % (24.0-44.0); MEAN CORPUSCULAR HEMOGLOBIN 28.1 pg (27.0-33.0); MEAN CORPUSCULAR HGB CONC 32.2 g/dl (32.0-36.5); MEAN CORPUSCULAR VOLUME 87.5 fl (80.0-96.0); MONO # 0.4 10^3/uL (0.0-0.8); MONO % 8.5 % (2.0-8.0); NEUTROPHILS # 2.8 10^3/uL (1.5-8.5); NEUTROPHILS % 66.8 % (36.0-66.0); PLATELET COUNT, AUTOMATED 183 10^3/uL (150-450); RED BLOOD COUNT 4.55 10^6/uL (4.00-5.40); WHITE BLOOD COUNT 4.2 10^3/uL (4.0-10.0)
[2024-08-01 07:23] LABS: BLOOD UREA NITROGEN 14 MG/DL (9-23); CALCIUM LEVEL 9.8 MG/DL (8.5-10.1); CARBON DIOXIDE LEVEL 29 MMOL/L (20-31); CHLORIDE LEVEL 104 MMOL/L (98-107); CK-MB VALUE MASS < 1.0 NG/ML (<3.6); GLOMERULAR FILTRATION RATE > 60.0 (>60); GLUCOSE, FASTING 114 MG/DL (60-100); SODIUM LEVEL 136 MMOL/L (136-145)
[2024-08-01 07:26] LABS: THYROID STIMULATING HORMONE 0.883 uIU/ML (0.55-4.78)
[2024-08-01 07:30] LABS: HCG, SERUM QUALITATIVE NEGATIVE (NEGATIVE)
[2024-08-01 07:38] LABS: CPK CREATINE PHOSPHOKINASE 133 U/L (34-145); MB/CK RELATIVE INDEX 0.75 (< OR =4)
[2024-08-01 08:00] VITALS: BP 124/84; TEMP 98.2; O2SAT 100
[2024-08-01] MEDS ORDERED: ONDA-282 PO (08:01)
[2024-08-01 08:39] LABS: CK-MB VALUE MASS < 1.0 NG/ML (<3.6)
[2024-08-01 08:48] LABS: CPK CREATINE PHOSPHOKINASE 129 U/L (34-145); MB/CK RELATIVE INDEX 0.77 (< OR =4)
== END 2024-08-01 08:16 | disposition home or self-care (01) ==
LOC: M ED 05:53
DX: R00.2 Palpitations (principal); K21.9 Gastro-esophageal reflux disease without esophagitis; Z79.899 Other long term (current) drug therapy

== ENCOUNTER → 2024-08-10 | Outpatient (CLI) | payer BC ==
[~2024-08-10] MED LIST changes: +ONDA-282 PO
== END ==
LOC: M PLAIMG 13:08
PROVIDERS: ATTEND Nurse Practitioner Family
DX: R00.2 Palpitations (principal)

== ENCOUNTER → 2025-01-14 | Outpatient (REF) | payer OTHER ==
[2025-01-14 12:19] LABS: INR 0.98; PROTHROMBIN TIME 13.3 SECONDS (12.5-14.5)
== END ==
LOC: M LAB REF 11:56
PROVIDERS: ATTEND Internal Medicine
DX: R23.3 Spontaneous ecchymoses (principal)

== ENCOUNTER → 2025-02-26 | Outpatient (CLI) | payer OTHER | LOC: M RAD 13:52 | PROVIDERS: ATTEND Internal Medicine | DX: S10.93XA Contusion of unspecified part of neck, initial encounter (principal); X58.XXXA Exposure to other specified factors, initial encounter; Y92.9 Unspecified place or not applicable; Y93.9 Activity, unspecified; Y99.9 Unspecified external cause status ==

== ENCOUNTER → 2025-08-08 | Outpatient (REF) | payer OTHER, BC ==
[~2025-08-08] MED LIST changes: -IBUP-1022 PO; +IBUP600T42 PO
[2025-08-08 15:14] LABS: CORTISOL AM 9.7 UG/DL (4.3-22.4)
== END ==
LOC: M LAB REF 13:09
PROVIDERS: ATTEND Internal Medicine
DX: D50.9 Iron deficiency anemia, unspecified (principal); G47.00 Insomnia, unspecified